=== PATIENT | male | born 1990 | race African-American/Black ===

== ENCOUNTER 2019-12-29 23:10 | Emergency (ER) | payer OTHER ==
[~2019-12-29] VITALS: Ht 162.6 cm; Wt 61.2 kg
--- NOTE | 2019-12-29 23:18 | NUR ---
PT TAKEN TO CHAIR Aurelia BRITT AT CHAIRSIDE.
[2019-12-29 23:20] VITALS: BP 153/103
--- NOTE | 2019-12-29 23:20 | NUR ---
PT EVALUATED BY MARILY BECKETT.
--- NOTE | 2019-12-29 23:34 | NUR ---
PATIENT BIB [place]. PATIENT EXAMINED BY DR. BECKETT. PATIENT MEDICALLY CLEARED AND RELEASED IN CUSTODY IN STABLE CONDITION. ORIGINAL PRE-BOOK FORM GIVEN TO OFFICER [facility], #[id number]
== END 2019-12-29 23:34 ==
LOC: MED 23:10
DX: I10 Essential (primary) hypertension (principal); F10.10 Alcohol abuse, uncomplicated; Z02.89 Encounter for other administrative examinations
CPT/HCPCS: 99283